=== PATIENT | male | born 1955 | race Caucasian/White ===

== ENCOUNTER 2018-10-10 09:08 | Observation (INO) ==
--- NOTE | 2018-09-20 14:15 | PAT Medication Instructions ---
Medication Instructions Date of Service September 20, 2018 Home Medications aspirin 81 mg PO QAM atorvastatin 20 mg PO QAM diltiazem HCl [Cartia XT] 240 mg PO QAM finasteride 5 mg PO QAM tamsulosin 0.4 mg PO QPM ASK your prescriber and surgeon aspirin 81 mg PO QAM Take morning of surgery With a small sip of water, OTHERWISE NOTHING TO EAT OR DRINK AFTER MIDNIGHT: atorvastatin 20 mg PO QAM diltiazem HCl [Cartia XT] 240 mg PO QAM finasteride 5 mg PO QAM Take evening before surgery tamsulosin 0.4 mg PO QPM Other Notes If you have any questions please call us at [phone] or [phone] or [phone] or [phone]
--- NOTE | 2018-09-20 14:29 | Anesthesiology Consultation ---
Date of Service September 20, 2018 Assessment & Plan (1) Encounter for pre-operative examination: Chart Review Chart Review: Acceptable Risk for Surgery and Patient NOT seen in Pre Admission Testing History Surgery Operation Date: 10/10/18 07:30 Proposed Procedures p Transurethral Resection of the Prostate - Kristian Bradshaw MD Height/Weight Height: 6 ft 3 in Weight: 120.8 kg Allergies Allergy/AdvReac Type Severity Reaction Status Date / Time Penicillins Allergy Mild hives, Verified 09/20/18 13:59 rash fever Medications Home Medications Medication Instructions Recorded Confirmed Last Taken aspirin 81 mg PO QAM 09/20/18 09/20/18 Unknown atorvastatin 20 mg PO QAM 09/20/18 09/20/18 Unknown diltiazem HCl [Cartia XT] 240 mg PO QAM 09/20/18 09/20/18 Unknown finasteride 5 mg PO QAM 09/20/18 09/20/18 Unknown tamsulosin 0.4 mg PO QPM 09/20/18 09/20/18 Unknown Past Medical History Medical History BPH (benign prostatic hyperplasia) Depression Diverticular disease Romero catheter in place SINCE 08/12/2018 Hyperlipidemia Hypertension Obesity Prostate cancer S/P LUPRON INJECTION 05/2018; PROSTATE/PELVIC LYMPH NODERADIATION 2016 Sleep apnea CPAP Past Surgical History Surgical History History of colonoscopy History of herniorrhaphy VENTRAL Hx of cystoscopy CYST EXCISION Hx of prostate biopsy Hx of transurethral resection of prostate Past Anesthesia History No Hx of Anesthesia Complications and No Family Hx of Anesthesia Complications History of PONV No Motion Sickness Screening History of Motion Sickness: No Social History Smoking Status: Former smoker tobacco type: cigarettes Do You Dip or Chew Tobacco: Yes (1/3 CAN/DAY- ADVISED NOT TO CHEW AM DOS) Smoking End Date: QUIT 13 YEARS AGO; 1.5PPD X 20+ YEARS Hx Alcohol Use: No Hx Substance Use: No Exercise / Class Metabolic Activity II 4-5 Yardwork/Stairs/Walk up hill Review of Systems Patient denies chest pain, shortness of breath, dyspnea on exertion, cough, wheezing, palpitations. Physical Exam Vital Signs Last Vital Signs Temp 36.6 C 09/20/18 14:13 Pulse 89 09/20/18 14:13 Resp 18 09/20/18 14:13 BP 96/56 L 09/20/18 14:13 Pulse Ox 96 09/20/18 14:13 BP manual recheck on right: 106/64. PHYSICAL Full neck and c-spine range of motion. Full TMJ range of motion. TMD 3.5 finger breaths Mallampati Score 3 Dentition: intact, cap on molar Lungs: clear throughout to auscultation Cardiac: regular rate and rhythm, no murmurs noted Spine: normal Carotid arteries: negative bruit Extremities: no edema Testing Electrocardiogram Date: 09/20/18 Findings: + NSR @ (77) Chest X-Ray Date: 09/21/18 Findings: + NAD Laboratory Results 09/20/18 14:40 09/20/18 14:40 Urine Color Dark Yellow 09/20/18 14:40 Urine Appearance Cloudy (Clear) H 09/20/18 14:40 Urine pH 6.0 (4.5-7.5) 09/20/18 14:40 Ur Specific [place] 1.018 (1.000-1.030) 09/20/18 14:40 Urine Protein 2+ (Negative) H 09/20/18 14:40 Urine Glucose (UA) Negative (Negative) 09/20/18 14:40 Urine Ketones Negative (Negative) 09/20/18 14:40 Urine Nitrite Negative (Negative) 09/20/18 14:40 Ur Leukocyte Esterase 1+ (Negative) H 09/20/18 14:40 Urine WBC (Auto) 1-5 /hpf (0-5) 09/20/18 14:40 Urine RBC (Auto) >30 /hpf (0-4) H 09/20/18 14:40 U Hyaline Cast (Auto) 1-5 /lpf (0-5) 09/20/18 14:40 U Epithel Cells (Auto) 10-20 /lpf (0-5) H 09/20/18 14:40 Urine Bacteria (Auto) Negative (Negative) 09/20/18 14:40 09/20/18 GFR 45.5 (in setting of prostate neoplasm/urinary retention; reason for procedure)
--- NOTE | 2018-09-20 15:07 | XRay Report ---
XR chest Pre-admission PA/Lat CLINICAL HISTORY: Preoperative evaluation COMPARISON STUDY: No previous studies for comparison. FINDINGS: Lung volumes are at the upper limits of normal. There is no consolidation or evidence for p ulmonary edema. Cardiac size is normal. Mediastinal contours are normal. IMPRESSION: No acute cardiopulmonary findings. Electronically signed by: Jason Greene M.D. 09/20/2018 3:05 PM
[2018-09-20 15:24] LABS: Basophils # (auto) 0.01 K/uL (0-0.2); Basophils % (auto) 0.1 %; Eosinophils # (auto) 0.07 K/uL (0-0.5); Hemoglobin 13.9 g/dL (14.0-18.0); Immature Granulocytes # (auto) 0.03 K/uL (0.00-0.02); Immature Granulocytes % (auto) 0.4 %; Lymphocytes # (auto) 0.81 K/uL (1.2-3.4); Lymphocytes % (auto) 11.5 %; Mean Corpuscular Hgb Conc 33.9 g/dL (32-36); Mean Corpuscular Volume 89.5 fL (80-100); Mean Platelet Volume 9.1 fL (7.4-10.4); Monocytes # (auto) 0.44 K/uL (0.11-0.59); Monocytes % (auto) 6.2 %; Neutrophils # (auto) 5.71 K/uL (1.4-6.5); Neutrophils % (auto) 80.8 %; Platelet Count 298 K/uL (130-400); RDW Coefficient of Variation 14.4 % (11.5-14.5); RDW Standard Deviation 46.9 fL (36.4-46.3); Red Blood Count 4.58 M/uL (4.7-6.1); White Blood Count 7.07 K/uL (4.8-10.8)
[2018-09-20 15:34] LABS: BUN Creatinine Ratio 11.6 (10-20); Calcium 9.6 mg/dl (8.5-10.1); Creatinine Clr Calc Pharmacy 66.6 ml/min; Est GFR (African American) 52.8; Est GFR (Non-African American) 45.5; Potassium 4.7 mmol/L (3.5-5.1)
[2018-09-20 15:42] LABS: Appearance Urine Cloudy (Clear); Bacteria Urine Automated Negative (Negative); Bilirubin Urine Negative (Negative); Blood Urine 3+ (Negative); Color Urine Dark Yellow; Glucose Urine UA Negative (Negative); Ketones Urine Negative (Negative); Leukocyte Esterase Urine 1+ (Negative); Nitrite Urine Negative (Negative); Protein Urine 2+ (Negative); RBC Urine Automated >30 /hpf (0-4); Specific Gravity Urine 1.018 (1.000-1.030); Urobilinogen Urine Negative (Negative)
[~2018-10-10 09:08] MED LIST: CIPROFLOXACIN 400 MG/200 ML BAG IV SCH; LR 15ML/HR IV SCH; cefTRIAXone SODIUM 1,000 MG in DEXTROSE 5% 50 ML IV SCH
[2018-10-10] MEDS ORDERED: ePHEDrine sulfate 50 MG/ML AMP IV PRN (10:36)
[2018-10-10] MEDS ORDERED: ATROPINE SULFATE 0.1 MG/ML 10ML SYR IV PRN (10:36)
[2018-10-10] MEDS ORDERED: HYDROmorphone INJ 1 MG/ML SYRINGE IV PRN (10:36)
--- NOTE | 2018-10-10 10:41 | History & Physical Bridge Note ---
Date of Service October 10, 2018 History & Physical Bridge Note I have examined the patient, reviewed the History & Physical and in the interval since the performance of the History & Physical I have noted the following changes of clinical significance: no changes noted
[2018-10-10] MEDS ORDERED: CIPROFLOXACIN 400MG / 200ML D5W IV ONE (10:59)
[2018-10-10] MEDS ORDERED: ONDANSETRON INJ 2 MG/ML 2 ML VIAL ONE (11:01)
[2018-10-10] MEDS ORDERED: DEXAMETHASONE SOD INJ 4 MG/ML VIAL ONE ×2 (11:01→11:28)
[2018-10-10] MEDS ORDERED: MIDAZOLAM HCL 1 MG/ML 2ML VIAL ONE (11:01)
[2018-10-10] MEDS ORDERED: fentaNYL citrate 100 MCG/2 ML VIAL ONE (11:01)
[2018-10-10] MEDS ORDERED: PROPOFOL IV EMULSION 10 MG/ML 20 ML VIAL IV ONE (11:01)
[2018-10-10] MEDS ORDERED: LIDOCAINE HCL 2% 2 ML VIAL/AMP(20MG/ML) INFIL ONE (11:01)
[2018-10-10] MEDS ORDERED: ePHEDrine sulfate 50 MG/ML SYR ONE (11:28)
[2018-10-10] MEDS ORDERED: BELLADONNA/OPIUM SUPP 60 MG SUPP PR ONE (11:54)
[2018-10-10] MEDS ORDERED: BELLADONNA/OPIUM SUPP 60 MG SUPP PR PRN (11:54)
--- NOTE | 2018-10-10 12:23 | Operative Report ---
Post Operative Report Pre & Post Diagnosis Operation Date: 10/10/18 10:50 Pre-Op Diagnosis: Malignant Neoplasm of Prostate, Urinary Retention Post-Op Diagnosis: Malignant Neoplasm of Prostate, Urinary Retention Procedure Operation Date: 10/10/18 10:50 Actual Procedures p Cystoscopy, Transurethral Resection of the Prostate(Not Applicable) - Kristian Bradshaw MD Surgeon Rosendo Bradshaw MD Flight Test Supervisor none Estimated Blood Loss 0 Findings Consistent with Post-Op Diagnosis Specimens none Description of Procedure Patient was identified in the preoperative holding area, appropriate informed consents reviewed and completed and the patient was transported to the operating suite. Upon arrival achieved appropriate preoperative antibiotics in the form of ciprofloxacin. Good general anesthesia was achieved and the patient was placed in dorsal lithotomy position where he was sterilely prepped and draped in standard fashion. 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 I was able to intubate this with a 27 [place]i resectoscope with 30 degree lens and visual control operator. Inspection of the urethra revealed minor irritation from his indwelling Romero catheter but no other stricture disease or abnormality. His prostate was relatively small in size with notable obstruction and irritation. Inspection of the bladder revealed catheter related cystitis without any gross tumor involvement of the bladder or other gross abnormality. Following my inspection, exchange the visual obturator for a resecting element, electing to use a button electrode. I began by vaporizing the left lateral lobe at the prostate. To begin at the bladder neck, expanding the bladder neck with incisions at 5 and 7:00. I then resected the tissue from closer to the apex until the left side was entirely opened. I proceeded to perform the same treatment to the right side, beginning by vaporizing tissue at the bladder neck and progressing towards the apex. I left a small amount of anterior tissue intact, and concluded the case after determining there was excellent hemostasis and the patent bladder neck and prostatic urethra. Although there is no bleeding, I inserted a 22 [place]i three-way Romero catheter as a precaution and begin slow CBI. He was extubated and taken to the PACU in stable condition. There were no complications. I attest to the content of the Intraoperative Record and any orders documented therein. Any exceptions are noted below.
[2018-10-10] MEDS ORDERED: ACETAMINOPHEN 325 MG TAB PO PRN (13:22)
[2018-10-10] MEDS ORDERED: ACETAMINOPHEN W/CODEINE #3 1 TAB PO PRN ×2 (13:22)
[2018-10-10] MEDS ORDERED: ONDANSETRON INJ 2 MG/ML 2 ML VIAL IV PRN (13:22)
[2018-10-10] MEDS: LACTATED RINGER'S 1,000 ML IV SCH ×2 (14:28→23:14)
--- NOTE | 2018-10-10 15:08 | Anesthesiology Progress Note ---
Date of Service October 10, 2018 Anesthesia Post Procedure Vital Signs Vital Signs: Temp Pulse Pulse Resp BP Pulse Ox 10/10/18 14:15 60 18 130/80 93 10/10/18 13:37 37.0 C 18 142/81 H 60 L 10/10/18 13:10 37.0 C 66 16 125/79 92 10/10/18 13:00 65 15 119/68 92 10/10/18 12:50 36.7 C 67 18 109/56 L 93 10/10/18 12:40 70 13 118/56 L 95 10/10/18 12:30 68 13 94/56 L 100 10/10/18 12:20 72 36 H 116/71 99 10/10/18 12:12 36.7 C 80 23 123/69 97 10/10/18 09:32 36.9 C 95 H 18 126/73 96 Pain Intensity Penis: Pain Intensity: 5 Notes Mental Status: alert / awake / arousable and participated in evaluation Nausea / Vomiting: adequately controlled Pain: adequately controlled Airway Patency, RR, SpO2: stable & adequate BP & HR: stable & adequate Hydration State: stable & adequate
[2018-10-10 19:46] VITALS: TEMP 98.1
[2018-10-11] MEDS: CIPROFLOXACIN 400 MG/200 ML BAG IV SCH ×2 (00:30→11:08)
[2018-10-11] MEDS: LACTATED RINGER'S 1,000 ML IV SCH ×2 (06:19→13:09)
[2018-10-11 07:03] LABS: Basophils # (auto) 0.01 K/uL (0-0.2); Basophils % (auto) 0.1 %; Eosinophils # (auto) 0.01 K/uL (0-0.5); Eosinophils % (auto) 0.1 %; Immature Granulocytes # (auto) 0.01 K/uL (0.00-0.02); Immature Granulocytes % (auto) 0.1 %; Lymphocytes # (auto) 0.79 K/uL (1.2-3.4); Lymphocytes % (auto) 9.2 %; Mean Corpuscular Hgb Conc 34.2 g/dL (32-36); Mean Corpuscular Volume 88.6 fL (80-100); Mean Platelet Volume 8.7 fL (7.4-10.4); Monocytes # (auto) 0.68 K/uL (0.11-0.59); Monocytes % (auto) 7.9 %; Neutrophils # (auto) 7.11 K/uL (1.4-6.5); Neutrophils % (auto) 82.6 %; Platelet Count 285 K/uL (130-400); RDW Coefficient of Variation 14.4 % (11.5-14.5); RDW Standard Deviation 46.7 fL (36.4-46.3); Red Blood Count 4.29 M/uL (4.7-6.1); White Blood Count 8.61 K/uL (4.8-10.8)
[2018-10-11 07:22] LABS: BUN Creatinine Ratio 16.8 (10-20); Calcium 9.5 mg/dl (8.5-10.1); Creatinine Clr Calc Pharmacy 72.9 ml/min; Est GFR (African American) 60.5; Est GFR (Non-African American) 52.2; Potassium 4.4 mmol/L (3.5-5.1)
--- NOTE | 2018-10-11 07:47 | Urology Progress Note ---
Date of Service October 11, 2018 Assessment & Plan (1) Prostate cancer: urinary retention; now POD #1 s/p TURP - voiding trial this AM - filled the bladder, pulled the catheter, voided 300cc of clear urine immediately - plan to continue observation this AM - will add AZO for discomfort - presuming he continues to empty adequately, we will plan for d/c home later today Subjective no issues overnight slow CBI crystal clear no pain, mild tenderness at the tip of his penis only Physical Exam Vital Signs (Past 24 Hours): Last Vital Signs Temp 36.7 C 10/11/18 03:20 Pulse 58 L 10/11/18 03:20 Resp 15 10/11/18 03:20 BP 122/67 10/11/18 03:20 Pulse Ox 95 10/11/18 03:20 Physical Exam: NAD AAox3 no resp distress abd soft urine clear
[2018-10-11] MEDS ORDERED: PHENAZOPYRIDINE HCL 200 MG TAB PO PRN (07:51)
[2018-10-11 07:55] VITALS: BP 131/82; PULSE 68; O2SAT 92
--- NOTE | 2018-10-11 08:32 | Anesthesiology Progress Note ---
Date of Service October 11, 2018 Anesthesia Post Procedure Vital Signs Vital Signs: Temp Pulse Pulse Resp BP Pulse Ox 10/11/18 07:54 36.7 C 68 18 131/82 92 10/11/18 03:20 36.7 C 58 L 15 122/67 95 10/10/18 23:13 36.7 C 72 15 144/76 H 93 10/10/18 19:41 36.7 C 74 18 138/79 92 10/10/18 17:21 36.8 C 74 18 134/79 92 10/10/18 15:54 36.5 C 18 139/89 92 10/10/18 14:15 60 18 130/80 93 10/10/18 13:37 37.0 C 18 142/81 H 60 L 10/10/18 13:10 37.0 C 66 16 125/79 92 10/10/18 13:00 65 15 119/68 92 10/10/18 12:50 36.7 C 67 18 109/56 L 93 10/10/18 12:40 70 13 118/56 L 95 10/10/18 12:30 68 13 94/56 L 100 10/10/18 12:20 72 36 H 116/71 99 10/10/18 12:12 36.7 C 80 23 123/69 97 10/10/18 09:32 36.9 C 95 H 18 126/73 96 Pain Intensity Penis: Pain Intensity: 5 Notes Mental Status: alert / awake / arousable and participated in evaluation Nausea / Vomiting: adequately controlled Pain: adequately controlled Airway Patency, RR, SpO2: stable & adequate BP & HR: stable & adequate Hydration State: stable & adequate
[2018-10-11] MEDS ORDERED: dilTIAZem HCL 240 MG CAPCR PO SCH (09:00)
[2018-10-11] MEDS ORDERED: ATORVASTATIN 20 MG TAB PO SCH (09:00)
--- NOTE | 2018-10-12 08:37 | Discharge Summary ---
Date of Service October 11, 2018 Admission HPI Per Admitting Provider Urinary retention in the setting of advanced prostate cancer Principal Diagnosis Prostate cancer, urinary retention Discharge Data Allergies Allergy/AdvReac Type Severity Reaction Status Date / Time Penicillins Allergy Mild hives, Verified 10/10/18 09:24 rash fever fish derived Allergy Verified 10/10/18 09:25 Procedures Performed Operation Date: 10/10/18 10:50 Actual Procedures p Cystoscopy, Transurethral Resection of the Prostate(Not Applicable) - Kristian Bradshaw MD Hospital Course (1) Prostate cancer: Admitted for TURP - tolerated procedure very well - progressed appropriately overnight - passed a voiding trial on the morning of POD#1 - d/c home in stable condition Total Time Total Time Spent Total Time Spent (In Minutes): 30 Total Time Includes: Examination of the Patient, Discharge Planning and Medication Reconciliation Discharge Plan Discharge Items Patient Disposition: Home - Self-Care Reason For Visit: Neoplasm of Prostate, Malignant, Urinary Retention Discharge Diagnosis: prostate ca; urinary retention Discharge Goals: Decrease discomfort and Improve disease control Activity: Resume your previous activity Lifting: Gradually increase as tolerated Bathing: No limitations Sexual Activity: When tolerated Driving/Machine Use: No limitations Non-emergency contact: Urologist Call non-emergency contact if: your symptoms worsen, your pain is not controlled, you have a fever and your temperature is above 101.5 Follow-up/Referrals: Hang Leone DO [Primary Care Provider] - Diet: Regular Addtl Provider Instructions: Please use AZO (available over the counter) to limit burning with urination Prescriptions: New ciprofloxacin HCl [Cipro] 500 mg tablet 500 mg PO BID Qty: 6 RF: 0 Continued atorvastatin 20 mg Tablet 20 mg PO QAM RF: 0 diltiazem HCl [Cartia XT] 240 mg Capsule,Extended Release 24hr 240 mg PO QAM RF: 0 aspirin 81 mg Tablet,Chewable 81 mg PO QAM RF: 0 finasteride 5 mg Tablet 5 mg PO QAM RF: 0 Stand-Alone Forms: [employer]/Other Patient Handouts: Spirometer Incentive, DVT Prevent Discharge Orders: Discharge Order (Routine); Ordered 10/11/18 Ordered By: Maritza Aquino Admission Data Admit Date/Time: 10/10/18 12:35 Attending Provider: Kristian Bradshaw Admit Provider: Kristian Bradshaw Primary Care Provider: Hang Leone Service: Surgical Services Other Interventions: Discharge Summary Assessment (RN) Last Done: 10/11/18 13:50 DC Date/Time DO NOT enter until pt leaves facility: 10/11/18 14:39
== END 2018-10-11 14:39 | disposition home or self-care (01) ==
LOC: 3W 09:08 → ASU 09:08